=== PATIENT | female | born 1995 | race Two or more races ===

== ENCOUNTER 2022-10-23 01:26 | Inpatient (IN) | payer OTHER ==
[~2022-10-23] VITALS: Ht 170.2 cm; Wt 141.1 kg
[2022-10-23] MEDS ORDERED: PRENATAL CAPLE1 EAC1 PO (01:50)
== END 2022-10-27 13:57 | disposition home or self-care (01) | DRG 831 ==
LOC: LDR 01:26 → OB/GYN 10-24 10:16
PROVIDERS: ADMIT Specialist; ATTEND Specialist
PROC: BY4FZZZ Ultrasonography of Third Trimester, Single Fetus (ICD-10-PCS; principal; 2022-10-23)
PROC: 4A1HXCZ Monitoring of Products of Conception, Cardiac Rate, External Approach (ICD-10-PCS; 2022-10-23)
PROC: 4A033R1 Measurement of Arterial Saturation, Peripheral, Percutaneous Approach (ICD-10-PCS; 2022-10-23)
DX: O98.513 Other viral diseases complicating pregnancy, third trimester (principal); U07.1 COVID-19; Z3A.35 35 weeks gestation of pregnancy; Z20.822 Contact with and (suspected) exposure to COVID-19

== ENCOUNTER 2022-11-15 13:30 | Inpatient (IN) | payer OTHER ==
[~2022-11-15] VITALS: Ht 170.2 cm; Wt 3.2 kg
[~2022-11-15 13:30] MED LIST: PRENATAL CAPLE1 EAC1 PO
== END 2022-11-23 13:40 | disposition home or self-care (01) | DRG 788 ==
LOC: OB/GYN 11-20 06:02 → LDR 11-20 06:02 → OB/GYN 11-20 10:15
PROVIDERS: ADMIT Specialist; ATTEND Specialist
PROC: 4A1HXCZ Monitoring of Products of Conception, Cardiac Rate, External Approach (ICD-10-PCS; 2022-11-20)
PROC: 10D00Z1 Extraction of Products of Conception, Low, Open Approach (ICD-10-PCS; principal; 2022-11-20 15:30)
DX: O62.0 Primary inadequate contractions (principal); Z3A.39 39 weeks gestation of pregnancy; Z37.0 Single live birth; Z20.822 Contact with and (suspected) exposure to COVID-19